=== PATIENT | female | born 1970 | race Two or more races ===

== ENCOUNTER → 2025-06-29 | Outpatient (CLI) | payer MEDICAID, SELFPAY ==
--- NOTE | 2025-06-29 14:00 | XR_ITS ---
Examination: Breast ultrasound complete, bilateral Date and time of exam: June 29, 2025 1519 hours INDICATIONS: Mammogram May 16, 2025 architectural distortion upper outer left breast anterior depth Technique: Real-time grayscale ultrasonographic imaging bilateral breasts, including all 4 quadrants as well as nipple retroareolar and axillary regions. Findings: Sonographic images right breast 5:00 nodule versus glandular tissue 6 x 6 mm Sonographic images left breast 12:00 cyst 9 x 7 mm No solid nodules IMPRESSION: BI-RADS Category 3: Probably benign findings One additional 6 month right breast sonogram follow-up is needed to document stability of 5:00 nodule right breast described above
--- NOTE | 2025-06-29 15:00 | XR_ITS ---
Examination: Diagnostic digital mammography, unilateral, left Computer aided detection 3-D breast Tomosynthesis, unilateral Date and time of exam: 12/28/2024 1531 hours INDICATIONS: Mammogram May 16, 2025 architectural distortion upper outer left breast Technique: Nonmagnified MLO, CC views of the left breast have been obtained, reconstructed from 3-D Tomosynthesis images. R2 computer aided detection program utilized for evaluation of suspicious masses and/or abnormal calcifications. 3-D Tomosynthesis images obtained. Findings: Scattered areas of fibroglandular density. There does appear to be subtle possible architectural distortion in the upper and slightly outer left breast on the spot compression views Impression: BI-RADS category 3: Probably benign findings Recommend 6 month left mammogram follow-up
== END | disposition home or self-care (01) ==
PROVIDERS: Referring Provider Physician Assistant; Visit Provider Physician Assistant
DX: R92.332 Mammographic heterogeneous density, left breast (principal); N63.14 Unspecified lump in the right breast, lower inner quadrant
CPT/HCPCS: 76641; 77061; 77065; G0279